=== PATIENT | male | born 2000 | race African-American/Black ===

== ENCOUNTER 2023-07-03 15:17 | Emergency (ER) | payer MEDICAID, SELFPAY ==
[2023-07-03 15:51] VITALS: BP 128/69; PULSE 90; RESP 16; TEMP 36.9; O2SAT 98; BMI 26.4
--- NOTE | 2023-07-03 16:57 | CRLHL7_ITS ---
For Patients: As a result of the Century Cures Act, medical imaging exams and procedure reports are released immediately into your electronic medical record. You may view this report before your referring provider. If you have questions, please contact your health care provider. INDICATION: Fall, twisted ankle. TECHNIQUE: Left ankle 3 views. Permanently recorded images are archived. COMPARISON: None. FINDINGS: No acute fracture or aggressive osseous lesion. Alignment is normal. No joint effusion. The joint spaces are preserved. Mild soft tissue swelling circumferentially about the ankle. IMPRESSION: Mild circumferential soft tissue swelling about the ankle. No acute bony abnormality. Dictated by Skinny Pérez MD @ 07/03/2023 6:25:22 PM (Electronically Signed)
--- NOTE | 2023-07-03 18:09 | ED_ITS ---
HPI - General Adult General Date Seen: 07/03/23 Chief complaint: Extremity Pain/Injury, Lower Stated complaint: L ankle injury Time Seen by Provider: 07/03/23 17:12 History of Present Illness HPI narrative: Pleasant 22 year old gentleman presenting to the ER today with left ankle pain. Accidentally injured his left ankle about 1 week ago. He was apparently playing basketball in jumped up to make a shot. He thought he had more room plan many did any came down his foot landed on another player's foot and he twisted his left ankle awkwardly. He has been having pain both in the lateral malleolus the and the medial malleolus since then. He has been trying to rest and recover from the injury at home for the past week. He has been keeping his ankle wrapped with an Jhony wrap. He has been trying to keep it elevated. He really does not have much pain while he has his foot up really does get pain when he tries to walk on it and he tries to dorsiflex his ankle. No numbness or tingling in his foot. No pain radiating up to his knee. Related Data Home Medications Medication Instructions Recorded Confirmed albuterol sulfate 90 mcg/actuation 1 puff inhalation Q4H PRN 07/03/23 07/03/23 aerosol inhaler (Ventolin HFA) mometasone-formoterol HFA 100 1 puff inhalation DAILY 07/03/23 07/03/23 mcg-5 mcg/actuation aerosol inhaler (Dulera) Allergies Allergy/AdvReac Type Severity Reaction Status Date / Time No Known Drug Allergies Allergy Verified 07/03/23 15:50 PFSH PFSH Social History Smoking Status: Never smoker Do you use any of these nicotine containing products: None Second hand tobacco smoke exposure: No How often do you have a drink containing alcohol: never AUDIT-C Alcohol total score: 0 Non-prescribed substance use: denies use Exam Narrative: Exam Narrative: Constitutional: Appears well-developed and well-nourished. Alert. Conversant. Non toxic. HENT: Head: Atraumatic. Nose: Nose normal. Mouth/Throat: Oral mucosa is clear and moist. no trismus. Eyes: Conjunctivae normal. EOM normal. Pupils equal, round, and reactive to light. No scleral icterus. Neck: Normal range of motion. Neck supple. No tracheal deviation present. Cardiovascular: Normal rate, regular rhythm. Normal DP and PT artery pulses Pulmonary/Chest: Effort normal. No stridor. No respiratory distress. Musculoskeletal: RUE: Normal range of motion. No tenderness. No deformity LUE: Normal range of motion. No tenderness. No deformity RLE: Normal range of motion. No edema. No tenderness. No deformity LLE: Normal range of motion in his hip, knee, and ankle but he does have pain with dorsiflexion or extreme plantar flexion of the ankle. No tenderness over the knee, proximal fibula, patella, proximal tibia. No tenderness of the tibial spine. Gastroc Achilles nontender. He has mild tenderness both on the bony medial malleolus and on the lateral malleolus. Also tender over the soft tissue just distal to the lateral malleolus. No tenderness over the dorsum of the midfoot. No tenderness over the base of the 5th metatarsal. No tenderness over the calcaneus. Forefoot and toes are normal and nontender. Strong DP and PT pulse. Normal distal cap refill. Intact distal likely sensory function on the medial and lateral foot, sole of the foot, dorsal 1st webspace. No edema. No tenderness. No deformity Neurological: Alert and oriented to person, place, and time. Normal strength. CN II-VII intact. No sensory deficit. GCS eye subscore is 4. GCS verbal subscore is 5. GCS motor subscore is 6. Normal coordination Skin: Skin is warm and dry. No rash noted. No pallor. Normal capillary refill. Psychiatric: Normal mood. Normal affect. Const: Vital Signs, click to edit/add: Vital Signs - 24 hr 07/03/23 15:51 Temperature 98.5 F Pulse Rate [Pulse Oximeter] 90 Respiratory Rate 16 Blood Pressure [Ri ght Upper Arm] 128/69 Pulse Oximetry 98 Oxygen Delivery Me thod Room Air Course Vital Signs Vital signs: Initial Vital Signs Temperature 98.5 F 07/03/23 15:51 Temperature Source Temporal Artery Scan 07/03/23 15:51 Pulse Rate 90 07/03/23 15:51 Respiratory Rate 16 07/03/23 15:51 Blood Pressure 128/69 07/03/23 15:51 Blood Pressure Mean 88 07/03/23 15:51 Blood Pressure Position Sitting 07/03/23 15:51 Pulse Oximetry 98 07/03/23 15:51 Oxygen Delivery Method Room Air 07/03/23 15:51 Vital Signs Temperature 98.5 F 07/03/23 15:51 Pulse Rate 90 07/03/23 15:51 Respiratory Rate 16 07/03/23 15:51 Blood Pressure 128/69 07/03/23 15:51 Pulse Oximetry 98 07/03/23 15:51 Oxygen Delivery Method Room Air 07/03/23 15:51 Temperature 98.5 F 07/03/23 15:51 Pulse Rate 90 07/03/23 15:51 Respiratory Rate 16 07/03/23 15:51 Blood Pressure 128/69 07/03/23 15:51 Pulse Oximetry 98 07/03/23 15:51 Oxygen Delivery Method Room Air 07/03/23 15:51 Medical Decision Making MDM Narrative Medical decision making narrative: This patient presents for evaluation of left ankle pain. He is tender mostly over the lateral malleolus but also mildly tender over the medial malleolus. The injury actually occurred a week ago and he has been trying to recover at home but is still has persistent pain and swelling. Signs and symptoms are consistent with an ankle sprain. There are no signs of fracture on radiograph. The patients neurovascular status is normal. Knee exam is normal. I don't think this is a Maisonneuve injury or a intraosseous ligament injury based on the location of tenderness. No evidence for compartment syndrome. I do not think the swelling or presents DVT or cellulitis or septic joint. A head to toe trauma exam is otherwise negative; the likelihood of other serious sequelae of trauma (spine, head, chest, abdomen, other extremities, pelvis) is low. Plan is for protected weightbearing, RICE treatment with ice 15-20 minutes every 3 hours, and an bracing. Patient will advance weightbearing and follow-up in 2- 4 days. They will begin gentle ROM exercises. Precautions for return reviewed and questions answered. Imaging Data xr left ankle: Attestation: I have reviewed the pertinent imaging results. My impression: No acute fracture by my read Radiologist's impression: IMPRESSION: Mild circumferential soft tissue swelling about the ankle. No acute bony abnormality. Discharge Plan Discharge Clinical Impression: Ankle sprain and strain Patient Disposition: Home, Self-Care Condition: Stable Instructions: Ankle Sprain (ED), Ankle Stirrup Splint (ED) Additional Instructions: As discussed, please call the [facility] tomorrow at 8:00 a.m. to schedule your follow-up appointment. Call [phone]. Use the ankle brace to help protect her ankle. Continue to keep it elevated when possible. Use ice for 20 minutes every 3-4 hours to help reduce swelling. Use Tylenol 1000 mg every 6 hours or ibuprofen 600 mg every 6 hours by mouth as needed for pain. Prescriptions: No Action albuterol sulfate [Ventolin HFA] 90 mcg/actuation HFA aerosol inhaler 1 puff INHALATION Q4H PRN Dulera 100-5 mcg/actuation HFA aerosol inhaler 1 puff INHALATION DAILY Follow Up/Referrals: Provider,Not a Local [Primary Care Provider] - Stand Alone Forms: [employer] Info Instructions
== END 2023-07-03 18:52 | disposition home or self-care (01) ==
LOC: ED 18:52
PROVIDERS: Emergency Provider Emergency Medicine
DX: S93.402A Sprain of unspecified ligament of left ankle, initial encounter (principal); X50.1XXA Overexertion from prolonged static or awkward postures, initial encounter; Y93.67 Activity, basketball
CPT/HCPCS: 73610; 99282; 99283

== ENCOUNTER 2024-08-07 10:10 | Emergency (ER) | payer SELFPAY ==
[2024-08-07 10:20] VITALS: BP 128/87; PULSE 66; RESP 18; TEMP 36.4; O2SAT 95; BMI 26.4
--- NOTE | 2024-08-07 10:33 | CRLHL7_ITS ---
For Patients: As a result of the Century Cures Act, medical imaging exams and procedure reports are released immediately into your electronic medical record. You may view this report before your referring provider. If you have questions, please contact your health care provider. Indication: Shortness of breath Technique: Chest 2 views Comparison: None Findings/Impression: Cardiovascular and mediastinum: Heart size and vasculature are normal in caliber and appearance. Mediastinum is within normal limits. Lungs and pleural spaces: Lungs are clear. No sign of infiltrate or mass. No sign of pleural effusion. No pneumothorax. Bones and soft tissues: No significant findings. Dictated by Shahbaz Vallejo MD @ 08/07/2024 10:54:58 AM (Electronically Signed)
--- NOTE | 2024-08-07 10:34 | ED.GENADULT ---
HPI - General Adult General Chief complaint: Shortness of Breath/Dyspnea Stated complaint: Trouble breathing, tightness Time Seen by Provider: 08/07/24 10:24 History of Present Illness HPI narrative: Patient is a 24-year-old gentleman who comes in today with a cough of 3 months duration. History of asthma and is on both Dulera as well as albuterol. He has had no fevers no chills no night sweats. The cough is nonproductive. He is using his medications without incident. He has had no changes appetite. Patient is exercising regularly with no limitations. Related Data Home Medications ?Medication ?Instructions ?Recorded ?Confirmed albuterol sulfate 90 mcg/actuation 1 puff inhalation Q4H PRN 07/03/23 07/03/23 aerosol inhaler (Ventolin HFA) mometasone-formoterol HFA 100 1 puff inhalation DAILY 07/03/23 07/03/23 mcg-5 mcg/actuation aerosol inhaler (Dulera) Previous Rx's ?Medication ?Instructions ?Recorded mometasone-formoterol HFA 100 2 puff inhalation BID #13 grams 08/07/24 mcg-5 mcg/actuation aerosol inhaler (Dulera) prednisone 20 mg tablet 20 mg PO BID #10 tabs 08/07/24 Allergies Allergy/AdvReac Type Severity Reaction Status Date / Time No Known Drug Allergies Allergy Verified 08/07/24 10:19 Review of Systems Status of ROS: Reports: 10 or more systems reviewed and unremarkable except as noted in History and below PFSH PFS Social History Smoking Status: Never smoker Do you use any of these nicotine containing products: None Second hand tobacco smoke exposure: No How often do you have a drink containing alcohol: never AUDIT-C Alcohol total score: 0 Non-prescribed substance use: denies use Exam Narrative: Exam Narrative: EXAM GENERAL: Patient appears comfortable and well. EYES: No scleral icterus. ENT: Tympanic membranes and oropharynx normal. THYROID: no thyroid nodules or thyromegaly. LYMPH: No supraclavicular or cervical lymphadenopathy. SKIN: Visible skin seen during exam normal or with benign process only. EXT: No dependent lower extremity pedal edema. HEART: Regular rate and rhythm with no murmurs, rubs, or gallops. LUNGS: Mild expiratory wheezes bilaterally. ABD: Soft, non tender, non distended. PSYCH: Good eye contact, speech is not pressured. Const: Vital Signs, click to edit/add: Vital Signs - 24 hr 08/07/24 10:20 Temperature 97.6 F Pulse Rate [Pulse Oximeter] 66 Respiratory Rate 18 Blood Pressure [Ri ght Upper Arm] 128/87 Pulse Oximetry 95 Oxygen Delivery Me thod Room Air Course Course ED Course: Patient seen examined. Chest x-ray pending. Vital Signs Vital signs: Initial Vital Signs Temperature 97.6 F 08/07/24 10:20 Temperature Source Temporal Artery Scan 08/07/24 10:20 Pulse Rate 66 08/07/24 10:20 Pulse Rhythm Regular 08/07/24 10:20 Respiratory Rate 18 08/07/24 10:20 Blood Pressure 128/87 08/07/24 10:20 Blood Pressure Mean 100 08/07/24 10:20 Blood Pressure Position Supine 08/07/24 10:20 Pulse Oximetry 95 08/07/24 10:20 Oxygen Delivery Method Room Air 08/07/24 10:20 Vital Signs Temperature 97.6 F 08/07/24 10:20 Pulse Rate 66 08/07/24 10:20 Respiratory Rate 18 08/07/24 10:20 Blood Pressure 128/87 08/07/24 10:20 Pulse Oximetry 95 08/07/24 10:20 Oxygen Delivery Method Room Air 08/07/24 10:20 Temperature 97.6 F 08/07/24 10:20 Pulse Rate 66 08/07/24 10:20 Respiratory Rate 18 08/07/24 10:20 Blood Pressure 128/87 08/07/24 10:20 Pulse Oximetry 95 08/07/24 10:20 Oxygen Delivery Method Room Air 08/07/24 10:20 Medical Decision Making MDM Narrative Medical decision making narrative: Patient is a 24-year-old gentleman with history of asthma comes in today with exacerbation. Chest x-ray is unremarkable upon my review. He is afebrile. Symptoms have been going on several weeks. At this time I do think that week she continued treating with albuterol and Dulera plus a short course of prednisone. I did make arrangements at his pharmacy he will follow-up with his primary physician as needed. Discharge Plan Discharge Clinical Impression: Asthma with acute exacerbation Patient Disposition: Home, Self-Care Condition: Stable Instructions: Asthma (ED) Additional Instructions: Continue current medications. Prednisone as directed. Follow-up with your doctor as needed. Activity Level: No Restrictions Discharge Diet: Regular Prescriptions: New prednisone 20 mg tablet 20 mg PO BID Qty: 10 0RF Dulera 100-5 mcg/actuation HFA aerosol inhaler 2 puff inhalation BID Qty: 13 3RF No Action albuterol sulfate [Ventolin HFA] 90 mcg/actuation HFA aerosol inhaler 1 puff INHALATION Q4H PRN Dulera 100-5 mcg/actuation HFA aerosol inhaler 1 puff INHALATION DAILY Follow Up/Referrals: Provider,Not a Local [Primary Care Provider] - Stand Alone Forms: [employer] Info Instructions
== END 2024-08-07 11:15 | disposition home or self-care (01) ==
LOC: ED 11:11
PROVIDERS: Emergency Provider Internal Medicine
DX: J45.901 Unspecified asthma with (acute) exacerbation (principal)
CPT/HCPCS: 71046; 99283; 99284